=== PATIENT | female | born 1955 | race Caucasian/White ===

== ENCOUNTER 2017-01-14 14:33 | Emergency (ER) | payer OTHER ==
[2017-01-14 15:13] LABS: BASO % 0.4 % (0-2); EOS % 0.7 % (0-7); EOSINOPHIL ABSOLUTE COUNT 0.1 tho/cmm (0.0-0.7); HCT-HEMATOCRIT 38.9 % (34.0-49.0); HGB-HEMOGLOBIN 13.4 gm/dl (12.0-15.5); IMMATURE GRANULOCYTES ABSOLUTE 0.03 tho/cmm (0-0.03); IMMATURE GRANULOCYTES PERCENT 0.3 % (0-0.3); LYMPH % 21.7 % (20-45); LYMPH ABSOLUTE COUNT 2.1 tho/cmm (0.8-4.5); MCH (MEAN CORPUSCULAR HGB) 29.6 pg (28.0-32.0); MCHC MEAN CORPUSCULAR HGB CONC 34.4 % (32.0-36.0); MCV (MEAN CELL VOLUME) 86.1 fl (82.0-96.0); MEAN PLATELET VOLUME 10.7 cmc (9.4-12.4); MONO % 5.9 % (0-12); MONOCYTE ABSOLUTE COUNT 0.6 tho/cmm (0.0-1.2); PLATELET COUNT 332 tho/cmm (150-450); RED BLOOD COUNT 4.52 mil/cmm (4.00-5.20); RED CELL DISTRIBUTION WIDTH 12.8 % (12.4-16.4); WHITE BLOOD COUNT 9.9 tho/cmm (4.0-10.0)
[2017-01-14 15:31] LABS: ALB/GLOB RATIO 1.2 (0.8-2.0); ALKALINE PHOSPHATASE 76 U/L (33-138); ALT/SGPT 38 U/L (12-78); ANION GAP 15 mmol/L (0-20); AST/SGOT 23 U/L (10-40); BILIRUBIN,TOTAL 0.4 mg/dl (0-1.5); BLOOD UREA NITROGEN 12 mg/dl (6-24); CALCIUM 9.1 mg/dl (8.5-10.5); CARBON DIOXIDE-VENOUS 24 mmol/L (22-32); CHLORIDE 101 mmol/l (96-110); CREATININE 0.76 mg/dl (0.50-1.10); GLUCOSE 100 mg/dL (70-110); LIPASE 73 U/L (73-393); POTASSIUM 4.3 mmol/L (3.7-5.1); SODIUM 136 mmol/L (135-145); eGFR VALUE FOR BLACK >90 mL/Min
[2017-01-14 15:38] LABS: URINE BILIRUBIN NEGATIVE (NEG); URINE BLOOD SMALL (NEG); URINE GLUCOSE (UA) NEGATIVE (NEG); URINE KETONE NEGATIVE (NEG); URINE LEUKOCYTE ESTERASE NEGATIVE (NEG); URINE NITRITE NEGATIVE (NEG); URINE PROTEIN NEGATIVE (NEG)
[2017-01-14 15:39] LABS: URINE APPEARANCE CLEAR; URINE COLOR YELLOW
[2017-01-14 15:44] LABS: URINE EPITHELIAL CELLS 0 /[HPF] (0-10); URINE RBC 0-2 /[HPF] (0-5); URINE WBC RARE /[HPF] (0-5)
[2017-01-14] MEDS ORDERED: TENORMIN100 M1 PO (15:53)
[2017-01-14] MEDS ORDERED: NORVASC10 M2 PO (15:53)
[2017-01-14] MEDS ORDERED: ALDACTONE50 M1 PO (15:53)
[2017-01-14] MEDS ORDERED: FIBER PO (15:54)
[2017-01-14] MEDS ORDERED: VITAMIN D31000 UNI3 (15:54)
[2017-01-14] MEDS ORDERED: MULTIPLE VITAM1 EAC3 PO (15:54)
[2017-01-14] MEDS ORDERED: ALLEGRA ALLERG180 M1 PO (15:54)
[2017-01-14] MEDS ORDERED: FLONASE ALLERG9.9 ML (15:54)
[2017-01-14] MEDS ORDERED: CALCIUM CARBON500 M2 PO (15:55)
[2017-01-14] MEDS ORDERED: PRILOSEC OTC20 M1 PO (15:55)
[2017-01-14] MEDS ORDERED: NORCO 5-325 TA1 EACH PO (17:45)
== END 2017-01-14 18:22 ==
LOC: EDMED 14:33
PROVIDERS: Emergency Medicine
DX: N20.0 Calculus of kidney (principal); I10 Essential (primary) hypertension; Z87.442 Personal history of urinary calculi; Z90.710 Acquired absence of both cervix and uterus; Z98.890 Other specified postprocedural states
CPT/HCPCS: J1170; J1885; J2405; J7030; Q9967